=== PATIENT | male | born 1980 | race Hispanic/Latino ===

== ENCOUNTER 2020-03-23 12:15 | Emergency (ER) | payer SELFPAY ==
[2020-03-23] MEDS ORDERED: BENZONATATE 100 MG CAP PO ONE (13:31)
[2020-03-23] MEDS ORDERED: HYDROCODONE/CHLORPHEN 5 ML/OSYR ONE (13:31)
--- NOTE | 2020-03-23 14:24 | RAD REPORT ---
EXAM DESCRIPTION: Mark Single View03/23/2020 1:56 pm CLINICAL HISTORY: cough COMPARISON: none FINDINGS: The lungs appear clear of acute infiltrate. The heart is normal size IMPRESSION: No acute abnormalities displayed
--- NOTE | 2020-03-23 14:46 | ER ---
Nurse's Notes [facility] Name: Jhony Castro Age: 40 yrs Sex: Male : 1980 Arrival Date: 03/23/2020 Time: 12:18 Bed 4 Private MD: Diagnosis: Cough;Viral infection of unspecified site;Fever, unspecified-Subjective Presentation: 03/23 12:32 Chief complaint: Patient states: Fever, cough, ALVAREZ, chills, nausea for 5 days. Started ll1 taking amoxicillin BID for 4 days (from [place]). Coronavirus screen: Client denies travel out of the [place] in the last 14 days. chills, cough unrelated to allergies, fatigue, fever, headache, nausea, loss of taste or smell, Client presents with at least one sign or symptom that may indicate coronavirus-19. Standard/surgical mask placed on the client. Ebola Screen: Patient denies travel to an Ebola-affected area in the 21 days before illness onset. Initial Sepsis Screen: Does the patient meet any 2 criteria? HR > 90 bpm. No. Patient's initial sepsis screen is negative. Does the patient have a suspected source of infection? Yes: Productive cough/pneumonia. Risk Assessment: Do you want to hurt yourself or someone else? Patient reports no desire to harm self or others. Onset of symptoms was March 19, 2020. 12:32 Method Of Arrival: Ambulatory 1 12:32 Acuity: TATY 3 ll1 Historical: - Allergies: 12:31 No Known Allergies; ll1 - PMHx: 12:31 None; ll1 - PSHx: 12:31 None; ll1 - Immunization history:: Flu vaccine is not up to date. - Social history:: Smoking status: Patient denies any tobacco usage or history of. Screenin:30 Abuse screen: Denies threats or abuse. Nutritional screening: No deficits noted. aa5 Tuberculosis screening: No symptoms or risk factors identified. Fall Risk None identified. Assessment: 13:30 General: Appears comfortable, Behavior is calm, cooperative, Reports chills for >3 aa5 days. Pain: Complains of pain in whole body Pain currently is 4 out of 10 on a pain scale. Quality of pain is described as aching, Is continuous. Neuro: Level of Consciousness is awake, alert, obeys commands, Oriented to person, place, time, situation. Cardiovascular: Heart tones S1 S2 present Rhythm is regular. Respiratory: Reports cough Airway is patent Respiratory effort is even, unlabored, Respiratory pattern is regular, symmetrical, Breath sounds are clear bilaterally. GI: No signs and/or symptoms were reported involving the gastrointestinal system. : No signs and/or symptoms were reported regarding the genitourinary system. EENT: No signs and/or symptoms were reported regarding the EENT system. Derm: Skin is pink, warm \T\ dry. Musculoskeletal: Range of motion: intact in all extremities. 14:06 Reassessment: Patient is alert, oriented x 3, equal unlabored respirations, skin aa5 warm/dry/pink. Awaiting radiology and lab results, pt notified of wait time. . 14:58 Reassessment: Pt up for discharge, waiting for MD to speak with pt regarding results sv and discharge. 15:05 Reassessment: Patient is alert, oriented x 3, equal unlabored respirations, skin aa5 warm/dry/pink. Vital Signs: 12:32 BP 141 / 80; Pulse 100; Resp 18; Temp 99.5; Pulse Ox 99% ; Weight 113.4 kg; Height 5 ll1 ft. 10 in. (177.80 cm); Pain 4/10; 14:30 BP 114 / 65; Pulse 95; Resp 16 S; Pulse Ox 97% on R/A; aa5 12:32 Body Mass Index 35.87 (113.40 kg, 177.80 cm) ll1 ED Course: 12:18 Patient arrived in ED. ds1 12:31 Arm band placed on. ll1 12:34 Triage completed. ll1 13:08 Ed Moses MD is Attending Physician. kdr 13:15 Linda Wilde, COLLEEN is Primary Nurse. aa5 13:30 Patient has correct armband on for positive identification. Bed in low position. Call aa5 light in reach. Side rails up X 1. 13:45 COVID swab sent to lab. Flu and/or RSV swab sent to lab. Strep swab sent to lab. jp3 13:56 CXR XRAY In Process Unspecified. EDMS 15:00 No provider procedures requiring assistance completed. Patient did not have IV access aa5 during this emergency room visit. Administered Medications: 13:21 Drug: Tussionex Pennkinetic ER 5 ml Route: PO; ph 13:38 Follow up: Response: No adverse reaction ph 13:21 Drug: Tessalon Perle 200 mg Route: PO; ph 13:38 Follow up: Response: No adverse reaction ph 13:32 CANCELLED (Duplicate Order): Tussionex Pennkinetic ER 5 ml PO once ph 13:32 CANCELLED (Duplicate Order): Tessalon Perle 200 mg PO once ph Outcome: 14:45 Discharge ordered by . mojgan 15:05 Discharged to home ambulatory. aa5 15:05 Condition: stable 15:05 Discharge instructions given to patient, Instructed on discharge instructions, follow up and referral plans. medication usage, Demonstrated understanding of instructions, follow-up care, medications, Prescriptions given X 2. 15:10 Patient left the ED. ll1 Addendum: 03/26/2020 16:59 Addendum: COVID-19 Result: Positive result giiven to ED physician to notify pt. i w Physician attempted to contact pt. Physician attempted to contact pt but the phone number provided was either not a working number or they were unable to leave a voice mail. 03/27/2020 15:55 Addendum: Other pt called, positive covid result given to pt by Dr King. jose de jesus velez Signatures: Dispatcher [employer] EDMS Susannah Webber Stephanie, RN Ed Neal MD MD [facility] Adan, Monik ds1 Marcia Esteban RN RN iw Calderon, Audri, RN RN aa5 Lulú Jerez RN RN ph Pisarski, Jacob 3 Kasi Flower RN RN ll1 Corrections: (The following items were deleted from the chart) 03/23 16:27 13:30 General: Appears comfortable, Behavior is calm, cooperative, aa5 aa5 16:29 13:30 Respiratory: Reports cough Airway is patent Respiratory effort is even, aa5 unlabored, Respiratory pattern is regular, symmetrical, aa5
--- NOTE | 2020-03-23 14:46 | EDPHYS ---
Physician Documentation [facility] Name: Jhony Castro Age: 40 yrs Sex: Male : 1980 Arrival Date: 03/23/2020 Time: 12:18 Bed 4 Private MD: ED Physician Ed Moses HPI: 03/23 18:18 This 40 yrs old Male presents to ER via Ambulatory with complaints of Fever, kdr Cough. 18:18 The patient reports fever, not measured (subjective). Onset: The symptoms/episode kdr began/occurred gradually, 5 day(s) ago. 18:23 Modifying factors: Recent medications: acetaminophen, ibuprofen, unaware of sick kdr contact. Denies recent travel. Associated signs and symptoms: Pertinent positives: cough, that is dry, decreased appetite, headache, Pertinent negatives: abdominal pain, arthralgias, backache, diarrhea, pulling at ears, earache, hemoptysis. Severity of symptoms: At their worst the symptoms were mild moderate just prior to arrival, in the emergency department the symptoms are unchanged. The patient has not experienced similar symptoms in the past. The patient has not recently seen a physician. Historical: - Allergies: 12:31 No Known Allergies; ll1 - PMHx: 12:31 None; ll1 - PSHx: 12:31 None; ll1 - Immunization history:: Flu vaccine is not up to date. - Social history:: Smoking status: Patient denies any tobacco usage or history of. ROS: 18:23 Constitutional: Negative for fever, chills, and weight loss, Eyes: Negative for injury, kdr pain, redness, and discharge, Neck: Negative for injury, pain, and swelling, Cardiovascular: Negative for chest pain, palpitations, and edema, Abdomen/GI: Negative for abdominal pain, nausea, vomiting, diarrhea, and constipation, Back: Negative for injury and pain, : Negative for injury, bleeding, discharge, and swelling, MS/Extremity: Negative for injury and deformity, Skin: Negative for injury, rash, and discoloration, Neuro: Negative for headache, weakness, numbness, tingling, and seizure activity. Psych: Negative for depression, anxiety, suicide ideation, homicidal ideation, and hallucinations, Allergy/Immunology: Negative for hives, rash, and allergies, Endocrine: Negative for neck swelling, polydipsia, polyuria, polyphagia, and marked weight changes, Hematologic/Lymphatic: Negative for swollen nodes, abnormal bleeding, and unusual bruising. 18:23 Respiratory: Positive for cough, with no reported sputum, shortness of breath, on exertion. wheezing. Exam: 18:23 Constitutional: This is a well developed, well nourished patient who is awake, alert, kdr and in no acute distress. Head/Face: Normocephalic, atraumatic. Eyes: Pupils equal round and reactive to light, extra-ocular motions intact. Lids and lashes normal. Conjunctiva and sclera are non-icteric and not injected. Cornea within normal limits. Periorbital areas with no swelling, redness, or edema. Neck: Trachea midline, no thyromegaly or masses palpated, and no cervical lymphadenopathy. Supple, full range of motion without nuchal rigidity, or vertebral point tenderness. No Meningismus. Chest/axilla: Normal chest wall appearance and motion. Nontender with no deformity. No lesions are appreciated. Cardiovascular: Regular rate and rhythm with a normal S1 and S2. No gallops, murmurs, or rubs. Normal PMI, no JVD. No pulse deficits. Abdomen/GI: Soft, non-tender, with normal bowel sounds. No distension or tympany. No guarding or rebound. No evidence of tenderness throughout. Back: No spinal tenderness. No costovertebral tenderness. Full range of motion. Skin: Warm, dry with normal turgor. Normal color with no rashes, no lesions, and no evidence of cellulitis. MS/ Extremity: Pulses equal, no cyanosis. Neurovascular intact. Full, normal range of motion. Neuro: Awake and alert, GCS 15, oriented to person, place, time, and situation. Cranial nerves II-XII grossly intact. Motor strength 5/5 in all extremities. Sensory grossly intact. Cerebellar exam normal. Normal gait. Psych: Awake, alert, with orientation to person, place and time. Behavior, mood, and affect are within normal limits. 18:23 Respiratory: the patient does not display signs of respiratory distress, Respirations: normal, Breath sounds: rales, that are mild, are heard in the left posterior upper lobe and left posterior lower lobe. Vital Signs: 12:32 BP 141 / 80; Pulse 100; Resp 18; Temp 99.5; Pulse Ox 99% ; Weight 113.4 kg; Height 5 ll1 ft. 10 in. (177.80 cm); Pain 4/10; 14:30 BP 114 / 65; Pulse 95; Resp 16 S; Pulse Ox 97% on R/A; aa5 12:32 Body Mass Index 35.87 (113.40 kg, 177.80 cm) ll1 MDM: 14:45 Patient medically screened. kdr 18:23 Data reviewed: vital signs, nurses notes, lab test result(s), radiologic studies. kdr Counseling: I had a detailed discussion with the patient and/or guardian regarding: the historical points, exam findings, and any diagnostic results supporting the discharge/admit diagnosis, lab results, radiology results, the need for outpatient follow up. 03/23 13:26 Order name: COVID-19 kdr 03/23 13:26 Order name: Flu; Complete Time: 14:44 kdr 03/23 13:26 Order name: Strep; Complete Time: 14:44 kdr 03/23 13:26 Order name: CXR XRAY; Complete Time: 14:44 kdr 03/23 14:25 Order name: Throat Culture EDAK 03/23 13:26 Order name: Droplet/Contact Precautions; Complete Time: 13:38 kdr 03/23 13:26 Order name: Labs collected and sent; Complete Time: 13:38 kdr 03/23 13:26 Order name: O2 Per Protocol; Complete Time: 13:38 kdr Administered Medications: 13:21 Drug: Tussionex Pennkinetic ER 5 ml Route: PO; ph 13:38 Follow up: Response: No adverse reaction ph 13:21 Drug: Tessalon Perle 200 mg Route: PO; ph 13:38 Follow up: Response: No adverse reaction ph 13:32 CANCELLED (Duplicate Order): Tussionex Pennkinetic ER 5 ml PO once ph 13:32 CANCELLED (Duplicate Order): Tessalon Perle 200 mg PO once ph Disposition: 03/23/20 14:45 Discharged to Home. Impression: Cough, Viral infection of unspecified site, Fever, unspecified - Subjective. - Condition is Stable. - Discharge Instructions: Cough, Adult, [id number], Fever, Adult, [id number]. - Prescriptions for Promethazine VC- Codeine 6.25-5-10 mg/5 mL Oral syrup - take 5 milliliter by ORAL route every 4-6 hours as needed, not to exceed 30 mL in 24 hours; 200 milliliter. Tessalon Perles 100 mg Oral Capsule - take 1 capsule by ORAL route every 8 hours As needed; 15 capsule. - Work release form, Medication Reconciliation Form, Thank You Letter, Prescription Opioid Use form. - Follow up: Private Physician; When: 2 - 3 days; Reason: If symptoms return, Further diagnostic work-up, Recheck today's complaints, Continuance of care, Re-evaluation by your physician. - Problem is new. - Symptoms are unchanged. Signatures: Dispatcher [employer] EDMS Ed Moses MD MD kdr Lulú Jerez RN RN ph Kasi Flower RN RN ll1 Corrections: (The following items were deleted from the chart) 13:32 13:26 Tussionex Pennkinetic ER Suspension 5 ml PO once ordered. [facility] ph 13:32 13:26 Tessalon Perle 200 mg PO once ordered. [facility] 13:34 13:26 Document PUI# ordered. [facility] sv 13:34 13:26 [facility] [phone]/ ordered. [facility] sv 15:10 14:45 03/23/2020 14:45 Discharged to Home. Impression: Cough; Viral infection of ll1 unspecified site; Fever, unspecified - Subjective. Condition is Stable. Forms are Medication Reconciliation Form, Thank You Letter, Antibiotic Education, Prescription Opioid Use. Follow up: Private Physician; When: 2 - 3 days; Reason: If symptoms return, Further diagnostic work-up, Recheck today's complaints, Continuance of care, Re-evaluation by your physician. Problem is new. Symptoms are unchanged. kdr
[2020-03-23 19:41] VITALS: BP 141/80; TEMP 99.5; O2SAT 99
== END 2020-03-23 15:10 | disposition home or self-care (01) ==
LOC: ER 12:15
DX: U07.1 COVID-19 (principal)
CPT/HCPCS: 71045; 87070; 87081; 87804; 99284; U0002